=== PATIENT | female | born 1935 | race Caucasian/White ===

== ENCOUNTER 2019-02-27 10:19 | Inpatient (IN) | payer MEDICARE, OTHER ==
[~2019-02-27] VITALS: Ht 152.4 cm; Wt 59.0 kg
--- NOTE | 2019-02-27 10:53 | Emergency Room Report ---
History of Present Illness General Chief Complaint: Altered Level of Consciousness Source: Patient Present Illness HPI Patient presents with complaints of altered mental status last known well was on Saturday at approximately noon Patient's son reports that the patient was at another facility recently with reports of vomiting Since her discharge from the hospital she has now had increased unbalance complaints of headache Patient denies any chest pain or shortness of breath Vomiting has improved Son reports that patient appears more confused in the morning times her gait is altered Allergies: Coded Allergies: No Known Allergies (Unverified , 02/27/19) Patient History Past Medical History: see triage record Reviewed Nursing Documentation: PMH: Agreed; PSxH: Agreed Review of Systems All Other Systems: negative except mentioned in HPI Physical Exam Vital Signs Date Time Temp Pulse Resp B/P (MAP) Pulse Ox O2 Delivery O2 Flow Rate FiO2 02/27/19 10:42 97.5 86 16 184/77 (112) 99 Room Air Sp02 EP Interpretation: reviewed, normal General Appearance: well appearing, no apparent distress Head: normocephalic, atraumatic Eyes: bilateral eye PERRL, bilateral eye EOMI ENT: hearing grossly normal, normal pharynx, TMs + canals normal, uvula midline Neck: full range of motion, supple, no meningismus, no bony tend Respiratory: lungs clear, normal breath sounds, no rhonchi, no respiratory distress, no retraction, no accessory muscle use Cardiovascular #1: normal peripheral pulses, regular rate, rhythm, no edema, no gallop, no JVD, no murmur Gastrointestinal: normal bowel sounds, non tender, soft, no mass, no organomegaly, non-distended, no guarding, no hernia, no pulsatile mass, no rebound Genitourinary: no CVA tenderness Musculoskeletal: other - Patient has some limited mobility in her lower extremities Neurologic: motor strength/tone normal, sensory intact, responsive Psychiatric: mood/affect normal Skin: no rash Lymphatic: normal inspection, no adenopathy Medical Decision Making Diagnostic Impression: Primary Impression: UTI (urinary tract infection) Additional Impression: HTN (hypertension) ER Course Patient is a fairly complex patient with multiple differential to consideration including but not limited to cardiac cardiopulmonary and vascular emergencies Other neurological and infectious etiology also entertained Patient's urine sample does show infectious process CT head does not show any acute process Patient was initially hypertensive and required acute intervention which has improved and will be admitted for further inpatient care Labs Test 02/27/19 11:16 White Blood Count 7.6 K/UL (4.8-10.8) Red Blood Count 4.51 M/UL (4.20-5.40) Hemoglobin 13.4 G/DL (12.0-16.0) Hematocrit 40.4 % (37.0-47.0) Mean Corpuscular Volume 90 FL (80-99) Mean Corpuscular Hemoglobin 29.7 PG (27.0-31.0) Mean Corpuscular Hemoglobin Concent 33.1 G/DL (32.0-36.0) Red Cell Distribution Width 12.7 % (11.6-14.8) Platelet Count 226 K/UL (150-450) Mean Platelet Volume 7.2 FL (6.5-10.1) Neutrophils (%) (Auto) 66.5 % (45.0-75.0) Lymphocytes (%) (Auto) 22.5 % (20.0-45.0) Monocytes (%) (Auto) 10.0 % (1.0-10.0) Eosinophils (%) (Auto) 0.2 % (0.0-3.0) Basophils (%) (Auto) 0.8 % (0.0-2.0) Prothrombin Time 10.0 SEC (9.30-11.50) Prothromb Time International Ratio 0.9 (0.9-1.1) Activated Partial Thromboplast Time 27 SEC (23-33) Urine Color Pale yellow Urine Appearance Slightly cloudy Urine pH 6 (4.5-8.0) Urine Specific [place] 1.015 (1.005-1.035) Urine Protein Negative (NEGATIVE) Urine Glucose (UA) Negative (NEGATIVE) Urine Ketones Negative (NEGATIVE) Urine Blood Negative (NEGATIVE) Urine Nitrite Positive (NEGATIVE) Urine Bilirubin Negative (NEGATIVE) Urine Urobilinogen Normal MG/DL (0.0-1.0) Urine Leukocyte Esterase 2+ (NEGATIVE) Urine RBC 0-2 /HPF (0 - 2) Urine WBC 10-15 /HPF (0 - 2) Urine Squamous Epithelial Cells Few /LPF (NONE/OCC) Urine Bacteria Many /HPF (NONE) Sodium Level 140 MMOL/L (136-145) Potassium Level 4.3 MMOL/L (3.5-5.1) Chloride Level 102 MMOL/L (98-107) Carbon Dioxide Level 31 MMOL/L (21-32) Anion Gap 7 mmol/L (5-15) Blood Urea Nitrogen 20 mg/dL (7-18) Creatinine 1.0 MG/DL (0.55-1.30) Estimat Glomerular Filtration Rate mL/min (>60) Glucose Level 100 MG/DL (74-106) Calcium Level 9.8 MG/DL (8.5-10.1) Total Bilirubin 1.2 MG/DL (0.2-1.0) Direct Bilirubin 0.2 MG/DL (0.0-0.3) Aspartate Amino Transf (AST/SGOT) 21 U/L (15-37) Alanine Aminotransferase (ALT/SGPT) 30 U/L (12-78) Alkaline Phosphatase 85 U/L (46-116) Troponin I 0.000 ng/mL (0.000-0.056) Pro-B-Type Natriuretic Peptide 648 pg/mL (0-125) Total Protein 8.2 G/DL (6.4-8.2) Albumin 4.3 G/DL (3.4-5.0) Globulin 3.9 g/dL Albumin/Globulin Ratio 1.1 (1.0-2.7) Lipase 164 U/L (73-393) Rhythm Strip Diag. Results EP Interpretation: yes Rate: 87 Rhythm: NSR, no PVC's, no ectopy Chest X-Ray Diagnostic Results Chest X-Ray Diagnostic Results : Chest X-Ray Ordered: Yes # of Views/Limited/Complete: 1 View Indication: Chest Pain EP Interpretation: Yes Interpretation: no consolidation, no effusion, no pneumothorax Impression: No acute disease Electronically Signed by: Carlos Mora DO CT/MRI/US Diagnostic Results CT/MRI/US Diagnostic Results : Impression CT headImpression: Chronic, age-related, and postsurgical changes as described. Negative for acute intracranial bleed or mass effect Last Vital Signs Date Time Temp Pulse Resp B/P (MAP) Pulse Ox O2 Delivery O2 Flow Rate FiO2 02/27/19 10:42 97.5 86 16 184/77 (112) 99 Room Air Status: improved Disposition: ADMITTED INPATIENT Condition: Serious Carlos Mora DO Feb 27, 2019 10:53
[2019-02-27 10:56] VITALS: BP 184/77
[2019-02-27 11:42] LABS: BASOPHILS % (AUTO) 0.8 % (0.0-2.0); EOSINOPHILS % (AUTO) 0.2 % (0.0-3.0); HEMATOCRIT 40.4 % (37.0-47.0); HEMOGLOBIN 13.4 G/DL (12.0-16.0); LYMPHOCYTES % (AUTO) 22.5 % (20.0-45.0); MEAN CORPUSCULAR VOLUME 90 FL (80-99); NEUTROPHILS % (AUTO) 66.5 % (45.0-75.0); PLATELET COUNT 226 K/UL (150-450); RED BLOOD COUNT 4.51 M/UL (4.20-5.40); RED CELL DISTRIBUTION WIDTH 12.7 % (11.6-14.8); WHITE BLOOD COUNT 7.6 K/UL (4.8-10.8)
[2019-02-27 11:51] LABS: ANION GAP 7 mmol/L (5-15); BLOOD UREA NITROGEN 20 mg/dL (7-18); CALCIUM 9.8 MG/DL (8.5-10.1); CARBON DIOXIDE 31 MMOL/L (21-32); CHLORIDE 102 MMOL/L (98-107); POTASSIUM 4.3 MMOL/L (3.5-5.1); SODIUM 140 MMOL/L (136-145)
[2019-02-27 11:52] LABS: INR 0.9 (0.9-1.1)
[2019-02-27 11:59] LABS: APPEARANCE,URINE SLIGHTLY CLOUDY; BILIRUBIN, URINE NEGATIVE (NEGATIVE); COLOR,URINE PALE YELLOW; GLUCOSE, URINE (UA) NEGATIVE (NEGATIVE); KETONES,URINE NEGATIVE (NEGATIVE); LEUKOCYTE ESTERASE ,URINE 2+ (NEGATIVE); NITRITE,URINE POSITIVE (NEGATIVE); PH,URINE 6 (4.5-8.0); PROTEIN,URINE NEGATIVE (NEGATIVE); UROBILINOGEN,URINE NORMAL MG/DL (0.0-1.0)
[2019-02-27 12:09] LABS: ALANINE AMINOTRANSFERASE 30 U/L (12-78); ALBUMIN 4.3 G/DL (3.4-5.0); ALBUMIN/GLOBULIN RATIO 1.1 (1.0-2.7); ALKALINE PHOSPHATASE 85 U/L (46-116); ASPARTATE AMINO TRANSFERASE 21 U/L (15-37); BILIRUBIN,TOTAL 1.2 MG/DL (0.2-1.0)
--- NOTE | 2019-02-27 12:56 | Diagnostic Imaging Report ---
Indications: Technique: Spiral acquisitions obtained through the brain. Angled axial and coronal 5 x 5 mm slices were reconstructed. Total dose length product 1551 mGycm. CTDI vol(s) 62 mGy. Dose reduction achieved using automated exposure control Comparison: None. Findings: There is evidence of prior high left convexity craniotomy. There is a craniectomy defect in the right occipital region. There is encephalomalacia of the underlying right cerebellar hemisphere. There is also some encephalomalacia in the high right frontal lobe and the high right parasagittal parietal lobe and the left parasagittal occipital lobe. There is generalized age-related enlargement of the ventricles and extra axial CSF spaces. There is periventricular deep white matter low-attenuation consistent with chronic microvascular ischemic change. No acute intracranial hemorrhage or edema. No mass effect nor midline shift. Visualized orbits are unremarkable. The mastoids are clear. The sinuses are clear. There is evidence of prior cataract surgery on the right. Impression: Chronic, age-related, and postsurgical changes as described. Negative for acute intracranial bleed or mass effect The CT scanner at [facility] is accredited by the [employer] and the scans are performed using protocols designed to limit radiation exposure to as low as reasonably achievable to attain images of sufficient resolution adequate for diagnostic evaluation.
[2019-02-27] MEDS ORDERED: cefTRIAXone 1 GM in NS 55 ML IVPB ONE (13:00)
[2019-02-27 13:20] VITALS: BP 140/82
--- NOTE | 2019-02-27 13:23 | Diagnostic Imaging Report ---
Indication: Chest pain Technique: One view of the chest Comparison: none Findings: No acute infiltrates, effusions, or congestion. Tortuous calcified aorta. Normal heart size. Upper mediastinum unremarkable. Impression: No acute process.
[2019-02-27 13:24] LABS: BILIRUBIN,DIRECT 0.2 MG/DL (0.0-0.3)
[2019-02-27 15:00] VITALS: BP 150/75
[2019-02-27] MEDS ORDERED: AMLODIPINE BESYL5 MG ORAL (16:58)
[2019-02-27] MEDS ORDERED: LINZESS145 MCG PO (17:02)
[2019-02-27] MEDS ORDERED: ISOSORBIDE DINI10 M1 PO (17:02)
[2019-02-27] MEDS ORDERED: METOPROLOL TART25 MG ORAL (17:02)
[2019-02-27] MEDS ORDERED: ATORVASTATIN CA20 MG ORAL (17:02)
[2019-02-27] MEDS ORDERED: LEXAPRO10 MG ORAL (17:02)
[2019-02-27] MEDS ORDERED: TRAZODONE HCL150 MG ORAL (17:02)
[2019-02-27] MEDS ORDERED: Milk of Magnesia 30ml Ud ORAL PRN (17:15)
[2019-02-27] MEDS ORDERED: Zolpidem 5mg tab ORAL PRN (17:15)
[2019-02-27] MEDS: Metoprolol 25mg tab ORAL SCH (17:43)
[2019-02-27 20:00] VITALS: BP 125/56
--- NOTE | 2019-02-27 21:01 | Consultation ---
DATE OF CONSULTATION: 02/27/2019 INFECTIOUS DISEASE CONSULTATION CONSULTING PHYSICIAN: Delroy Holcomb M.D. PRIMARY ATTENDING PHYSICIAN: Ugo Holcomb M.D. REASON FOR CONSULT: UTI. HISTORY OF PRESENT ILLNESS: This is an 83-year-old white female admitted today from home complaining of altered mental status since couple of days ago. She cannot walk in the past three days. PAST MEDICAL HISTORY: Significant for hypertension, history of CVA, likely dementia, recent history of hospitalization at [facility] around two weeks ago. ALLERGIES: No known drug allergies. MEDICATIONS: Aspirin, ceftriaxone, atorvastatin, trazodone, metoprolol, Norvasc, and Ambien. SOCIAL HISTORY: , lives at home. No history of alcohol, drug abuse, or smoking. REVIEW OF SYSTEMS: No fever. No chills. She has progressive weakness in the past three months. She had vomiting that is improved. Has dry coughing. Has urinary incontinence. PHYSICAL EXAMINATION: VITAL SIGNS: Temperature 97.9, pulse 89, and blood pressure 150/75. GENERAL APPEARANCE: Well developed, in no acute distress. Awake, alert, verbal. HEAD AND NECK: [place] conjunctivae. HEART: Normal rate. LUNGS: Clear. ABDOMEN: Soft and nontender. EXTREMITIES: No edema. LABORATORY AND DIAGNOSTIC DATA: WBC 7.6, hemoglobin 13.4, hematocrit 40.4, and platelets 226,000. Sodium 140, potassium 4.3, chloride 102, bicarb 31, BUN 20, and creatinine 1. UA showed nitrite positive, leukocyte esterase 2+ positive, urine wbc's 10 to 15. Chest x-ray, no acute disease. CT scan of the head, chronic age-related changes, evidence of previous left craniotomy. IMPRESSION: Pyuria, may have urinary tract infection. The patient has altered mental status, confusion, unsteady gait, urinary incontinence, hypertension, history of craniotomy, and CVA. RECOMMENDATION: Continue ceftriaxone. We will follow up the cultures. At the end of my exam, I thank Dr. Ugo Holcomb for involving me in the care of this patient. Delroy Holcomb M.D. DR: CASSIE JOB#: [id number] CC:
[2019-02-27] MEDS: TraZODone 50mg tab ORAL SCH (21:57)
[2019-02-27] MEDS: Atorvastatin 20mg tab ORAL SCH (21:57)
[2019-02-27 22:00] VITALS: BP 152/76
[2019-02-28] VITALS: BP 122/60
[2019-02-28 04:00] VITALS: BP 149/69
[2019-02-28 08:00] VITALS: BP 110/61
--- NOTE | 2019-02-28 08:09 | CDS Physician Query ---
Clarification is required for compliance, coding accuracy, and to reflect severity of illness for this patient Dear Dr. Delroy Holcomb M.D. Date: 02/28/2019 Doll Surgeon/CDS Name: Sabino Lorenzo This is an 83-year-old white female admitted today from home complaining of altered mental status since couple of days ago. She cannot walk in the past three days. "Altered Mental Status" documented in Consultation Please indicate the nature and chronicity of the condition below: [] Metabolic Encephalopathy [] Toxic Encephalopathy [] Toxic - Metabolic Encephalopathy [] Encephalopathy, Other [] Dementia with Delirium [] Hypoxic encephalopathy [] Posterior reversible encephalopathy syndrome [] Other: [] Not Applicable Present on Admission: [] Yes [] No [] Clinically Undetermined Physician signature Date Please also document in your Progress Notes and/or Discharge Summary and indicate if the condition was present on admission. MTDD
[2019-02-28] MEDS: Aspirin Baby 81mg ORAL SCH (08:25)
[2019-02-28] MEDS: Metoprolol 25mg tab ORAL SCH ×2 (08:25→20:47)
[2019-02-28] MEDS: cefTRIAXone 1 GM in D5W 55 ML IVPB SCH (09:23)
[2019-02-28 12:00] VITALS: BP 129/64
--- NOTE | 2019-02-28 14:16 | History & Physical ---
History and Physical History & Physicial HP dictated # [id number] Ugo Holcomb MD Feb 28, 2019 14:16
[2019-02-28 16:00] VITALS: BP 128/60
[2019-02-28 20:00] VITALS: BP 107/55
--- NOTE | 2019-02-28 20:02 | History and Physical Report ---
DATE OF ADMISSION: 02/27/2019 CHIEF COMPLAINT: The patient was found to have change in mental status. HISTORY OF PRESENT ILLNESS: This is an 83-year-old white female, who was brought in by family for change of mental status. The patient has had also problems with balance and headaches. She had also some vomiting since her recent discharge from another hospital. She was more confused. PAST MEDICAL HISTORY: Includes history of hypertension, CVA, and dementia. MEDICATIONS: Reviewed in the EMR. SOCIAL HISTORY: Unobtainable, but reported that the patient lives at home. No history of alcohol abuse, drug abuse, or smoking. REVIEW OF SYSTEMS: Unobtainable. PHYSICAL EXAMINATION: GENERAL: The patient is an elderly female, in no acute distress. VITAL SIGNS: Blood pressure is 129/64, pulse 61, respirations 18, and temperature 98.1. HEENT: [place] conjunctivae. Anicteric sclerae. NECK: Supple. LUNGS: Clear to auscultation. HEART: S1 and S2 without murmurs or rubs. ABDOMEN: Soft and nontender. EXTREMITIES: No cyanosis or edema. LABORATORY FINDINGS: The CBC shows WBC of 7600, hematocrit 40.4, hemoglobin is 13.4, and platelets 226,000. Chemistry panel shows serum sodium of 140, potassium 4.3, chloride 102, CO2 of 31, BUN is 20, and creatinine 1. Albumin is 4.3. The UA shows 10-15 wbc's per high-powered field and many bacteria. ASSESSMENT: This is an 83-year-old female, who was admitted with acute encephalopathy, likely toxic-metabolic as a result of her UTI in the presence of underlying dementia. She has history of hypertension, which is controlled at this point. PLAN: The patient was started on IV antibiotics. She will be followed by ID performance consultant. Laboratories will be followed and adjustments will be made in the patient's regimen. Ugo Holcomb M.D. DR: Jasmin JOB#: [id number] CC:
[2019-02-28] MEDS: TraZODone 50mg tab ORAL SCH (20:58)
[2019-02-28] MEDS: Atorvastatin 20mg tab ORAL SCH (20:58)
[2019-03-01] VITALS: BP 117/51
[2019-03-01 04:00] VITALS: BP 155/67
[2019-03-01 08:00] VITALS: BP 144/73
[2019-03-01] MEDS: Aspirin Baby 81mg ORAL SCH (08:54)
[2019-03-01] MEDS: Metoprolol 25mg tab ORAL SCH ×2 (08:54→21:00)
[2019-03-01] MEDS: cefTRIAXone 1 GM in D5W 55 ML IVPB SCH (08:54)
--- NOTE | 2019-03-01 11:53 | Infectious Diseases Prog Note ---
Assessment/Plan Assessment/Plan IMPRESSION: Pyuria, E. coli urinary tract infection. Altered mental status, confusion, unsteady gait, urinary incontinence, hypertension, history of craniotomy, and CVA. RECOMMENDATION: Continue ceftriaxone. Subjective ROS Limited/Unobtainable: Yes Constitutional: Reports: no symptoms Gastrointestinal/Abdominal: Reports: no symptoms Genitourinary: Reports: no symptoms Allergies: Coded Allergies: No Known Allergies (Unverified , 02/27/19) Objective Vital Signs Last 24 Hour Vital Signs Date Time Temp Pulse Resp B/P (MAP) Pulse Ox O2 Delivery O2 Flow Rate FiO2 03/01/19 08:54 67 144/73 03/01/19 08:54 67 144/73 03/01/19 08:00 65 03/01/19 08:00 98.2 67 18 144/73 (96) 97 03/01/19 08:00 Room Air 03/01/19 04:00 98.1 64 18 155/67 (96) 95 03/01/19 04:00 64 03/01/19 00:00 65 03/01/19 00:00 98.1 66 20 117/51 (73) 95 02/28/19 21:00 Room Air 02/28/19 20:47 67 107/55 02/28/19 20:00 69 02/28/19 20:00 98.0 67 20 107/55 (72) 95 02/28/19 16:00 64 02/28/19 16:00 98.0 61 19 128/60 (82) 95 02/28/19 12:00 98.1 61 18 129/64 (85) 97 02/28/19 12:00 60 Height (Feet): 5 Height (Inches): 0.00 Weight (Pounds): 130 General Appearance: no acute distress HEENT: mucous membranes moist Respiratory/Chest: lungs clear Cardiovascular: normal rate Abdomen: soft, non tender Extremities: no edema Neurologic/Psychiatric: alert, responsive Microbiology Date/Time Source Procedure Growth Status 02/27/19 11:16 Urine,Clean Catch Urine Culture - Final Escherichia Coli Complete Current Medications Medications (Trade) Dose Ordered Sig/Zaira Route PRN Reason Start Time Stop Time Status Last Admin Dose Admin Acetaminophen (Tylenol) 650 mg Q4H PRN ORAL Mild Pain (Pain Scale 1-3) 02/27/19 17:15 03/29/19 17:14 Amlodipine Besylate (Norvasc) 5 mg DAILY ORAL 02/27/19 17:16 03/29/19 17:15 03/01/19 08:54 Aspirin (ASA) 81 mg DAILY ORAL 02/28/19 09:00 03/30/19 08:59 03/01/19 08:54 Atorvastatin Calcium (Lipitor) 20 mg BEDTIME ORAL 02/27/19 21:00 03/29/19 20:59 02/28/19 20:58 Ceftriaxone Sodium 1 gm/ Dextrose 55 ml @ 110 mls/hr DAILY IVPB 02/28/19 09:00 03/07/19 08:59 03/01/19 08:54 Dextrose (Dextrose 50%) 25 ml Q30M PRN IV Hypoglycemia 02/27/19 17:15 03/29/19 17:14 Dextrose (Dextrose 50%) 50 ml Q30M PRN IV Hypoglycemia 02/27/19 17:15 03/29/19 17:14 Magnesium Hydroxide (Mom) 30 ml HSPRN PRN ORAL Constipation 02/27/19 17:15 03/29/19 17:14 Metoprolol Tartrate (Lopressor) 25 mg EVERY 12 HOURS ORAL 02/27/19 18:00 03/29/19 17:59 03/01/19 08:54 Trazodone HCl (Desyrel) 50 mg BEDTIME ORAL 02/27/19 21:00 03/29/19 20:59 02/28/19 20:58 Zolpidem Tartrate (Ambien) 5 mg DAILYPRN PRN ORAL Insomnia 02/27/19 17:15 03/06/19 17:14 Delroy Holcomb MD Mar 01, 2019 11:53
[2019-03-01 11:59] VITALS: BP 124/45
--- NOTE | 2019-03-01 14:39 | General Progress Note ---
Assessment/Plan Problem List: (1) Acute encephalopathy ICD Codes: G93.40 - Encephalopathy, unspecified SNOMED: 03057883, 941947660 (2) UTI (urinary tract infection) ICD Codes: N39.0 - Urinary tract infection, site not specified SNOMED: 08916356 (3) HTN (hypertension) ICD Codes: I10 - Essential (primary) hypertension SNOMED: 02304172 (4) Dementia ICD Codes: F03.90 - Unspecified dementia without behavioral disturbance SNOMED: 78333474 Assessment/Plan: abxs PT Discussed with RN Subjective Allergies: Coded Allergies: No Known Allergies (Unverified , 02/27/19) Subjective ok Objective Last 24 Hour Vital Signs Date Time Temp Pulse Resp B/P (MAP) Pulse Ox O2 Delivery O2 Flow Rate FiO2 03/01/19 12:00 61 03/01/19 11:59 98.3 55 17 124/45 (71) 97 03/01/19 08:54 67 144/73 03/01/19 08:54 67 144/73 03/01/19 08:00 65 03/01/19 08:00 98.2 67 18 144/73 (96) 97 03/01/19 08:00 Room Air 03/01/19 04:00 98.1 64 18 155/67 (96) 95 03/01/19 04:00 64 03/01/19 00:00 65 03/01/19 00:00 98.1 66 20 117/51 (73) 95 02/28/19 21:00 Room Air 02/28/19 20:47 67 107/55 02/28/19 20:00 69 02/28/19 20:00 98.0 67 20 107/55 (72) 95 02/28/19 16:00 64 02/28/19 16:00 98.0 61 19 128/60 (82) 95 Intake and Output 02/28/19 03/01/19 19:00 07:00 Intake Total 780 ml 120 ml Balance 780 ml 120 ml Intake Oral 780 ml 120 ml # Voids 1 2 Height (Feet): 5 Height (Inches): 0.00 Weight (Pounds): 130 Cardiovascular: normal rate Respiratory/Chest: lungs clear Edema: no edema noted Generalized Ugo Holcomb MD Mar 01, 2019 14:39
[2019-03-01 16:00] VITALS: BP 99/62
[2019-03-01 20:00] VITALS: BP 107/52
[2019-03-01] MEDS: TraZODone 50mg tab ORAL SCH (20:45)
[2019-03-01] MEDS: Atorvastatin 20mg tab ORAL SCH (20:45)
[2019-03-02] VITALS: BP 129/64
[2019-03-02 04:00] VITALS: BP 110/75
[2019-03-02 08:00] VITALS: BP 146/72
[2019-03-02] MEDS: Metoprolol 25mg tab ORAL SCH ×2 (09:41→21:28)
[2019-03-02] MEDS: Aspirin Baby 81mg ORAL SCH (09:41)
--- NOTE | 2019-03-02 09:46 | Infectious Diseases Prog Note ---
Assessment/Plan Assessment/Plan IMPRESSION: Pyuria, E. coli urinary tract infection. Altered mental status, confusion, unsteady gait, urinary incontinence, hypertension, history of craniotomy, and CVA. RECOMMENDATION: Continue ceftriaxone. At time of discharge will switch to PO Keflex Subjective ROS Limited/Unobtainable: Yes Constitutional: Reports: other - doing better; Denies: fever HEENT: Reports: other - chronic headache Allergies: Coded Allergies: No Known Allergies (Unverified , 02/27/19) Objective Vital Signs Last 24 Hour Vital Signs Date Time Temp Pulse Resp B/P (MAP) Pulse Ox O2 Delivery O2 Flow Rate FiO2 03/02/19 09:41 65 146/72 03/02/19 09:41 65 146/72 03/02/19 08:00 97.4 65 18 146/72 (96) 95 03/02/19 04:00 97.6 70 18 110/75 (87) 97 03/02/19 04:00 76 03/02/19 00:00 68 03/02/19 00:00 97.4 67 18 129/64 (85) 97 03/01/19 21:00 69 107/52 03/01/19 21:00 Room Air 03/01/19 20:00 65 03/01/19 20:00 97.1 69 18 107/52 (70) 95 03/01/19 16:00 62 03/01/19 16:00 98.0 65 17 99/62 (74) 97 03/01/19 12:00 61 03/01/19 11:59 98.3 55 17 124/45 (71) 97 Height (Feet): 5 Height (Inches): 0.00 Weight (Pounds): 130 General Appearance: no acute distress HEENT: mucous membranes moist Respiratory/Chest: lungs clear Cardiovascular: normal rate Abdomen: soft, non tender Extremities: no edema Neurologic/Psychiatric: alert, responsive Microbiology Date/Time Source Procedure Growth Status 02/27/19 11:16 Urine,Clean Catch Urine Culture - Final Escherichia Coli Complete Current Medications Medications (Trade) Dose Ordered Sig/Zaira Route PRN Reason Start Time Stop Time Status Last Admin Dose Admin Acetaminophen (Tylenol) 650 mg Q4H PRN ORAL Mild Pain (Pain Scale 1-3) 02/27/19 17:15 03/29/19 17:14 Amlodipine Besylate (Norvasc) 5 mg DAILY ORAL 02/27/19 17:16 03/29/19 17:15 03/02/19 09:41 Aspirin (ASA) 81 mg DAILY ORAL 02/28/19 09:00 03/30/19 08:59 03/02/19 09:41 Atorvastatin Calcium (Lipitor) 20 mg BEDTIME ORAL 02/27/19 21:00 03/29/19 20:59 03/01/19 20:45 Ceftriaxone Sodium 1 gm/ Dextrose 55 ml @ 110 mls/hr DAILY IVPB 02/28/19 09:00 03/07/19 08:59 03/01/19 08:54 Dextrose (Dextrose 50%) 25 ml Q30M PRN IV Hypoglycemia 02/27/19 17:15 03/29/19 17:14 Dextrose (Dextrose 50%) 50 ml Q30M PRN IV Hypoglycemia 02/27/19 17:15 03/29/19 17:14 Magnesium Hydroxide (Mom) 30 ml HSPRN PRN ORAL Constipation 02/27/19 17:15 03/29/19 17:14 Metoprolol Tartrate (Lopressor) 25 mg EVERY 12 HOURS ORAL 02/27/19 18:00 03/29/19 17:59 03/02/19 09:41 Trazodone HCl (Desyrel) 50 mg BEDTIME ORAL 02/27/19 21:00 03/29/19 20:59 03/01/19 20:45 Zolpidem Tartrate (Ambien) 5 mg DAILYPRN PRN ORAL Insomnia 02/27/19 17:15 03/06/19 17:14 Delroy Holcomb MD Mar 02, 2019 09:46
[2019-03-02] MEDS: cefTRIAXone 1 GM in D5W 55 ML IVPB SCH (10:49)
[2019-03-02 12:00] VITALS: BP 133/57
--- NOTE | 2019-03-02 14:50 | General Progress Note ---
Assessment/Plan Problem List: (1) Acute encephalopathy ICD Codes: G93.40 - Encephalopathy, unspecified SNOMED: 34650544, 848040154 (2) UTI (urinary tract infection) ICD Codes: N39.0 - Urinary tract infection, site not specified SNOMED: 74015395 (3) HTN (hypertension) ICD Codes: I10 - Essential (primary) hypertension SNOMED: 93841441 (4) Dementia ICD Codes: F03.90 - Unspecified dementia without behavioral disturbance SNOMED: 67915352 Assessment/Plan: abxs PT Discussed with RN Subjective Allergies: Coded Allergies: No Known Allergies (Unverified , 02/27/19) Subjective ok Objective Last 24 Hour Vital Signs Date Time Temp Pulse Resp B/P (MAP) Pulse Ox O2 Delivery O2 Flow Rate FiO2 03/02/19 12:00 56 03/02/19 12:00 97.3 57 18 133/57 (82) 97 03/02/19 09:41 65 146/72 03/02/19 09:41 65 146/72 03/02/19 09:00 Room Air 03/02/19 08:00 97.4 65 18 146/72 (96) 95 03/02/19 08:00 62 03/02/19 04:00 97.6 70 18 110/75 (87) 97 03/02/19 04:00 76 03/02/19 00:00 68 03/02/19 00:00 97.4 67 18 129/64 (85) 97 03/01/19 21:00 69 107/52 03/01/19 21:00 Room Air 03/01/19 20:00 65 03/01/19 20:00 97.1 69 18 107/52 (70) 95 03/01/19 16:00 62 03/01/19 16:00 98.0 65 17 99/62 (74) 97 Intake and Output 03/01/19 03/02/19 18:59 06:59 Intake Total 250 ml Balance 250 ml Intake Oral 250 ml # Voids 1 2 Height (Feet): 5 Height (Inches): 0.00 Weight (Pounds): 130 Cardiovascular: normal rate Respiratory/Chest: lungs clear Edema: no edema noted Ugo Lal MD Mar 02, 2019 14:50
[2019-03-02 16:00] VITALS: BP 136/61
[2019-03-02 20:00] VITALS: BP 152/77
[2019-03-02] MEDS: Atorvastatin 20mg tab ORAL SCH (21:27)
[2019-03-02] MEDS: TraZODone 50mg tab ORAL SCH (21:27)
[2019-03-03] VITALS: BP 144/67
[2019-03-03 04:00] VITALS: BP 152/73
[2019-03-03 08:00] VITALS: BP 168/59
[2019-03-03] MEDS: Metoprolol 25mg tab ORAL SCH (08:36)
[2019-03-03] MEDS: cefTRIAXone 1 GM in D5W 55 ML IVPB SCH (08:36)
[2019-03-03] MEDS: Aspirin Baby 81mg ORAL SCH (08:36)
[2019-03-03] MEDS ORDERED: ASPIR 8181 MG ORAL (10:06)
[2019-03-03] MEDS ORDERED: SEROQUEL25 MG ORAL (10:07)
[2019-03-03] MEDS ORDERED: CEPHALEXIN500 MG ORAL (10:14)
[2019-03-03 12:00] VITALS: BP 152/60
--- NOTE | 2019-03-03 12:02 | General Progress Note ---
Assessment/Plan Problem List: (1) Acute encephalopathy ICD Codes: G93.40 - Encephalopathy, unspecified SNOMED: 22392071, 556808331 (2) UTI (urinary tract infection) ICD Codes: N39.0 - Urinary tract infection, site not specified SNOMED: 66511329 (3) HTN (hypertension) ICD Codes: I10 - Essential (primary) hypertension SNOMED: 08176309 (4) Dementia ICD Codes: F03.90 - Unspecified dementia without behavioral disturbance SNOMED: 64927680 Assessment/Plan: Dc today Subjective Allergies: Coded Allergies: No Known Allergies (Unverified , 02/27/19) Subjective all noted Objective Last 24 Hour Vital Signs Date Time Temp Pulse Resp B/P (MAP) Pulse Ox O2 Delivery O2 Flow Rate FiO2 03/03/19 09:00 Room Air 03/03/19 08:36 102 168/59 03/03/19 08:35 102 168/59 03/03/19 08:00 72 03/03/19 08:00 98.2 102 20 168/59 (95) 94 03/03/19 04:00 64 03/03/19 04:00 98.1 62 18 152/73 (99) 95 03/03/19 00:00 97.2 70 16 144/67 (92) 96 03/03/19 00:00 63 03/02/19 21:28 65 152/77 03/02/19 21:00 Room Air 03/02/19 20:00 65 03/02/19 20:00 98.0 65 17 152/77 (102) 95 03/02/19 16:00 62 03/02/19 16:00 98.0 63 18 136/61 (86) 96 Intake and Output 03/02/19 03/03/19 18:59 06:59 Intake Total 720 ml 150 ml Balance 720 ml 150 ml Intake Oral 720 ml 150 ml # Voids 5 2 Height (Feet): 5 Height (Inches): 0.00 Weight (Pounds): 130 Ugo Holcomb MD Mar 03, 2019 12:02
--- NOTE | 2019-03-03 23:30 | Progress Note ---
DATE: 03/03/2019 SUBJECTIVE: The patient is calmer, more improved, manageable. No behavior issues noted today. She has episodes of anxiety. The patient is being discharged to a half-way. MENTAL STATUS EXAMINATION: Alert and oriented times to self. Mood is anxious. Affect is constricted, congruent with mood. Thought process is concrete. Thought content, no suicidal or homicidal ideation. Cognition is impaired. Insight and judgment is intact. PLAN: 1. We will continue current medications. 2. Provide the patient with reality orientation and supportive therapy. Lucille Hand M.D. DR: RADHA JOB#: [id number] CC:
--- NOTE | 2019-03-04 10:09 | Discharge Summary ---
Discharge Summary Discharge Summary _ DATE OF ADMISSION: 02/27/2019 DATE OF DISCHARGE: 03/03/2019 DISCHARGED BY: Dr. Holcomb REASON FOR ADMISSION: 83 years old female with past medical history of hypertension, CVA, dementia, was brought by family member due to altered mental status. Family reported problem with balance and headache. No chest pain or shortness of breath. Upon evaluation blood pressure was significantly elevated 184/77. Patient was afebrile . and pulse oximetry was stable on room air. Laboratory work-up revealed no leukocytosis . stable hemoglobin. hematocrit and platelet count. Urinalysis revealed evidence of urinary tract infection with pyuria. positive leukocyte esterase and many bacteria. Stable electrolytes and renal parameters. Troponin negative. pro BNP 648. EKG revealed sinus rhythm , no acute ischemic changes. Stable LFT and lipase. CT of the head revealed no acute intracranial pathology. Chronic and age- related changes noted. 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 Chest x-ray revealed no acute cardiopulmonary pathology. Patient subsequently admitted to telemetry floor for further management. CONSULTANTS: ID specialist Dr. Hammonds psychiatrist [facility] COURSE: Patient admitted to telemetry floor. Patient admitted with acute encephalopathy likely as a result of the UTI , superimposed on underlying dementia. Blood pressure initially was not controlled. Blood pressure was further managed with beta-mely and calcium channel mely. Antiplatelet therapy with aspirin and statin continued. Patient started on empiric antibiotics. Urine culture revealed E. coli. Renal parameters and electrolytes were closely monitored . Antibiotic further provided as per ID specialist recommendation. Patient was on IV antibiotic while in the hospital and switched to oral antibiotic to complete the course upon discharge. Psychiatrist followed and diagnosed patient with dementia with behavioral disturbance as well as anxiety disorder and major depressive disorder. Psychiatric medication regimen was optimized. Reality orientation and supportive therapy provided. Patient clinically stabilized and was ready [facility] care. FINAL DIAGNOSES: Acute encephalopathy E. coli UTI Urinary incontinence Hypertension History of CVA History of craniotomy Dementia with behavior disturbance. Anxiety disorder. Major depressive disorder. DISCHARGE MEDICATIONS: See Medication Reconciliation list. DISCHARGE INSTRUCTIONS: [facility]. Follow up with medical doctor at the facility. 83 years old female I have been assigned to dictate discharge summary for this account. I was not involved in the patient's management. Reena Golden NP Mar 04, 2019 10:09
--- NOTE | 2019-03-04 11:30 | Consultation ---
DATE OF CONSULTATION: CONSULTING PHYSICIAN: Lucille Hand M.D. HISTORY OF PRESENT ILLNESS: This is an 83-year-old Colombian-speaking female with a history of hypertension, CVA, and dementia who has been admitted to the hospital due to altered mental status. The patient has been noticed by family member to be more confused than baseline. During the evaluation, the patient was resting, in no acute distress. She has waxing and waning consciousness, memory impairment, and disoriented to date. She has poor insight into the situation she . She has episodes of anxiety. PAST PSYCHIATRIC HISTORY: Dementia and anxiety disorder. PAST MEDICAL HISTORY: Hypertension, obesity, dementia, and CVA. ALLERGIES: No known drug allergies. SOCIAL HISTORY: No alcohol abuse or smoking. MENTAL STATUS EXAMINATION: The patient is alert and oriented times self, and place. Colombian-speaking only. Mood is anxious. Attempting to come out of bed. Affect is flat. Thought process is disorganized. Thought content, no suicidal or homicidal ideation. Cognition is impaired. Insight and judgment are impaired. ASSESSMENT: AXIS I: 1. Dementia with behavior disturbance. 2. Anxiety disorder. 3. Major depressive disorder. PLAN: 1. The patient is taking Lexapro and trazodone hospital, which will be resumed. 2. We will start the patient on Seroquel p.r.n. for agitation. 3. We will continue to follow and readjust the medications. Lucille Hand M.D. DR: DODIE JOB#: [id number] CC:
== END 2019-03-03 13:46 | DRG 689 ==
LOC: EMR 11:29 → 2E 11:36 → EDBEDREQ 13:46 → 2E 17:29
DX: N39.0 Urinary tract infection, site not specified (principal); G92 Toxic encephalopathy; F03.91 Unspecified dementia, unspecified severity, with behavioral disturbance; R41.82 Altered mental status, unspecified; B96.20 Unspecified Escherichia coli [E. coli] as the cause of diseases classified elsewhere; I10 Essential (primary) hypertension; Z86.73 Personal history of transient ischemic attack (TIA), and cerebral infarction without residual deficits; R32 Unspecified urinary incontinence; F41.9 Anxiety disorder, unspecified; F32.9 Major depressive disorder, single episode, unspecified; R26.81 Unsteadiness on feet
CPT/HCPCS: 36415; 70450; 71045; 80053; 81003; 82248; 83690; 83880; 84484; 85025; 85610; 85730; 87086; 87181; 93005; 96365; 96375; 99285